=== PATIENT | male | born 1970 | race Caucasian/White ===

== ENCOUNTER 2016-12-04 12:24 | Emergency (ER) | payer BC, OTHER ==
[2016-12-04] MEDS ORDERED: Sodium Chloride 0.9% 1,000 ML IV ONE (12:43)
[2016-12-04] MEDS ORDERED: Sodium Chloride 0.9% 10 ML Syringe FLUSH PRN (12:44)
--- NOTE | 2016-12-04 13:17 | EDM.PDOC ---
[id number] Information: Reports: Patient - Related Data Allergies Allergy/AdvReac Type Severity Reaction Status Date / Time No Known Allergies Allergy Verified 01/06/17 16:23 Home Meds: Home Meds Diclofenac Sodium [Voltaren] 75 mg PO BID 01/06/17 [History] Melatonin/Pyridoxine HCl (B6) [Melatonin 3 mg Tablet] 3 mg PO BEDTIME PRN [History] traZODone HCl [Trazodone HCl] 100 mg PO BEDTIME PRN 01/06/17 [History] Omeprazole 20 mg PO DAILY #30 cap.cr 01/09/17 [Rx] Past Medical History - Past Health History Medical/Surgical History: Denies Medical/Surgical History Respiratory History: Reports: Other (See Below) Other Respiratory History: lung mets Gastrointestinal History: Reports: Bowel Obstruction, GERD, Other (See Below) Other Gastrointestinal History: mets to gi Musculoskeletal History: Reports: Back Pain, Chronic, Fracture Psychiatric History: Reports: Depression Oncologic (Cancer) History: Reports: Other (See Below) Other Oncologic History: testicular - Infectious Disease History Infectious Disease History: Reports: Chicken Pox - Past Surgical History GI Surgical History: Reports: Appendectomy Male Surgical History: Reports: Other (See Below) Other Male Surgeries/Procedures: R testical Social & Family History - Family History Family Medical History: Noncontributory - Tobacco Use Smoking Status *Q: Never Smoker - Caffeine Use Caffeine Use: Reports: None - Recreational Drug Use Recreational Drug Use: No ED ROS GENERAL - Review of Systems Review Of Systems: See Below (History of present illness) ED EXAM, NEURO - Physical Exam Exam: See Below (History of present illness) Course - Vital Signs Last Recorded V/S: Last Vital Signs Temp 36.7 C 12/04/16 12:33 Pulse 80 12/04/16 14:31 Resp 18 12/04/16 14:31 BP 112/59 L 12/04/16 14:31 Pulse Ox 96 12/04/16 14:31 - Orders/Labs/Meds Labs: Laboratory Tests 12/04/16 12/04/16 12/04/16 Range/Units 13:01 13:01 13:01 WBC 7.96 (4.0-11.0) K/uL RBC 5.19 (4.50-5.90) M/uL Hgb 15.8 (13.0-17.0) g/dL Hct 45.0 (38.0-50.0) % MCV 86.7 (80.0-98.0) fL MCH 30.4 (27.0-32.0) pg MCHC 35.1 (31.0-37.0) g/dL RDW Std Deviation 39.7 (28.0-62.0) fl RDW Coeff of Dave 13 (11.0-15.0) % Plt Count 246 (150-400) K/uL MPV 9.50 (7.40-12.00) fL Neut % (Auto) 72.7 (48.0-80.0) % Lymph % (Auto) 19.0 (16.0-40.0) % [place] % (Auto) 7.2 (0.0-15.0) % Eos % (Auto) 0.8 (0.0-7.0) % Baso % (Auto) 0.3 (0.0-1.5) % Neut # (Auto) 5.8 H (1.4-5.7) K/uL Lymph # (Auto) 1.5 (0.6-2.4) K/uL [place] # (Auto) 0.6 (0.0-0.8) K/uL Eos # (Auto) 0.1 (0.0-0.7) K/uL Baso # (Auto) 0.0 (0.0-0.1) K/uL Nucleated RBC % 0.0 /100WBC Nucleated RBCs # 0 K/uL Sodium 137 (136-146) mmol/L Potassium 4.1 (3.5-5.1) mmol/L Chloride 107 (98-110) mmol/L Carbon Dioxide 19 L (21-31) mmol/L BUN 10 (6.0-23.0) mg/dL Creatinine 0.9 (0.6-1.5) mg/dL Est Cr Clr Drug Dosing 115.90 mL/min Estimated GFR (MDRD) > 60.0 ml/min Glucose 117 H (60-110) mg/dL Calcium 9.5 (8.8-10.8) mg/dL Total Bilirubin 1.3 (0.1-1.5) mg/dL AST 26 (5-40) IU/L ALT 33 (8-54) IU/L Alkaline Phosphatase 60 (40-150) Troponin I < 0.10 (0.0-0.29) NG/ML Total Protein 7.7 (6.0-8.0) g/dL Albumin 4.1 (3.5-5.0) g/dL Globulin 3.6 H (2.0-3.5) g/dL Albumin/Globulin Ratio 1.1 L (1.3-2.8) Free T4 0.84 (0.7-1.48) ng/dL TSH 3rd Generation 0.42 L (0.47-5.0) uIU/mL Urine Color Urine Appearance Urine pH (5.0-8.0) Ur Specific [place] (1.001-1.035) Urine Protein (NEGATIVE) mg/dL Urine Glucose (UA) (NEGATIVE) mg/dL Urine Ketones (NEGATIVE) mg/dL Urine Occult Blood (NEGATIVE) Urine Nitrite (NEGATIVE) Urine Bilirubin (NEGATIVE) Urine Urobilinogen (<2.0) EU/dL Ur Leukocyte Esterase (NEGATIVE) Urine RBC (0-2/HPF) Urine WBC (0-5/HPF) Ur Epithelial Cells (NONE-FEW) Urine Bacteria (NEGATIVE) 12/04/16 Range/Units 13:40 WBC (4.0-11.0) K/uL RBC (4.50-5.90) M/uL Hgb (13.0-17.0) g/dL Hct (38.0-50.0) % MCV (80.0-98.0) fL MCH (27.0-32.0) pg MCHC (31.0-37.0) g/dL RDW Std Deviation (28.0-62.0) fl RDW Coeff of Dave (11.0-15.0) % Plt Count (150-400) K/uL MPV (7.40-12.00) fL Neut % (Auto) (48.0-80.0) % Lymph % (Auto) (16.0-40.0) % [place] % (Auto) (0.0-15.0) % Eos % (Auto) (0.0-7.0) % Baso % (Auto) (0.0-1.5) % Neut # (Auto) (1.4-5.7) K/uL Lymph # (Auto) (0.6-2.4) K/uL [place] # (Auto) (0.0-0.8) K/uL Eos # (Auto) (0.0-0.7) K/uL Baso # (Auto) (0.0-0.1) K/uL Nucleated RBC % /100WBC Nucleated RBCs # K/uL Sodium (136-146) mmol/L Potassium (3.5-5.1) mmol/L Chloride (98-110) mmol/L Carbon Dioxide (21-31) mmol/L BUN (6.0-23.0) mg/dL Creatinine (0.6-1.5) mg/dL Est Cr Clr Drug Dosing mL/min Estimated GFR (MDRD) ml/min Glucose (60-110) mg/dL Calcium (8.8-10.8) mg/dL Total Bilirubin (0.1-1.5) mg/dL AST (5-40) IU/L ALT (8-54) IU/L Alkaline Phosphatase (40-150) Troponin I (0.0-0.29) NG/ML Total Protein (6.0-8.0) g/dL Albumin (3.5-5.0) g/dL Globulin (2.0-3.5) g/dL Albumin/Globulin Ratio (1.3-2.8) Free T4 (0.7-1.48) ng/dL TSH 3rd Generation (0.47-5.0) uIU/mL Urine Color YELLOW Urine Appearance CLEAR Urine pH 7.5 (5.0-8.0) Ur Specific [place] 1.010 (1.001-1.035) Urine Protein NEGATIVE (NEGATIVE) mg/dL Urine Glucose (UA) NEGATIVE (NEGATIVE) mg/dL Urine Ketones NEGATIVE (NEGATIVE) mg/dL Urine Occult Blood NEGATIVE (NEGATIVE) Urine Nitrite NEGATIVE (NEGATIVE) Urine Bilirubin NEGATIVE (NEGATIVE) Urine Urobilinogen 1.0 (<2.0) EU/dL Ur Leukocyte Esterase NEGATIVE (NEGATIVE) Urine RBC NONE SEEN (0-2/HPF) Urine WBC 0-1 (0-5/HPF) Ur Epithelial Cells RARE (NONE-FEW) Urine Bacteria RARE (NEGATIVE) Meds: Medications Discontinued Medications Generic Name Dose Route Start Last Admin Trade Name Freq PRN Reason Stop Dose Admin Sodium Chloride 1,000 mls @ 999 mls/hr 12/04/16 12:43 12/04/16 13:02 Normal Saline IV 12/04/16 13:43 999 mls/hr .Bolus ONE Administration Sodium Chloride 10 ml 12/04/16 12:44 Saline Flush FLUSH ASDIRECTED PRN Keep Vein Open Departure - Departure Time of Disposition: 14:20 Disposition: Home, Self-Care 01 Clinical Impression: Vertigo, Dizziness - Discharge Information Instructions: Vertigo, [id number] Referrals: PCP,None [Primary Care Provider] - Forms: ED Department Discharge Additional Instructions: Your symptoms and findings today are consistent with vertigo. We have done a very full workup to rule out any abnormalities which might contribute to dizziness. This workup was all unremarkable, including EKG ,CT of the head, chest x-ray, and labs. Take meclizine every 6 hours as needed for dizziness. Ambulate very carefully with support and assistance if necessary to optimize your personal safety. It appears of in a position where an episode of dizziness may cause you to be in danger. Do not drive if feeling dizzy. Followup with your Dr. in one to 2 days for reevaluation and to discuss and arrange further workup as needed. ED HPI NEURO - General Chief Complaint: Neurological Problem Stated Complaint: DIZZY Time Seen by Provider: 12/04/16 12:33 Source of Information: Reports: Patient History Limitations: Reports: No Limitations - History of Present Illness INITIAL COMMENTS - FREE TEXT/NARRATIVE: HISTORY AND PHYSICAL: History of present illness: [46-year-old male with a history of anxiety on benzodiazepines, depression on antidepressants prior suicidal ideation, now presents emergency department after a transient episode of blurriness and twitching in the right eye. She states he was watching TV in his right eye started twitching and then was blurry. Symptoms lasted for a short time. No pain denies weakness of any time. No speech changes. Patient was indeed able see the entire time does experience mild transient blurriness. Baseline vision since and on arrival in ED to walk without any difficulty normal strength and use of all extremities. No facial droop at any time]. Patient has a family history of CVA with regard to his father and is very nervous about his risk profile in this regard. Review of systems: As per history of present illness and below otherwise all systems reviewed and negative. Past medical history: As per history of present illness and as reviewed below otherwise noncontributory. Surgical history: As per history of present illness and as reviewed below otherwise noncontributory. Social history: No reported history of drug or alcohol abuse. Family history: As per history of present illness and as reviewed below otherwise noncontributory. Physical exam: Mildly anxious appearing patient in no acute distress alert and communicative and nonfocal neurologically with normal funduscopic exam bilateral normal and reactive pupils and no facial droop HEENT: Atraumatic, normocephalic, pupils reactive, negative for conjunctival pallor or scleral icterus, mucous membranes moist, throat clear, neck supple, nontender, trachea midline. Lungs: Clear to auscultation, breath sounds equal bilaterally, chest nontender. Heart: S1S2, regular, negative for clicks, rubs, or JVD. Abdomen: Soft, nondistended, nontender. Negative for masses or hepatosplenomegaly. Negative for costovertebral tenderness. Pelvis: Stable nontender. Genitourinary: Deferred. Rectal: Deferred. Extremities: Atraumatic, negative for cords or calf pain. Neurovascular unremarkable. Neuro: Awake, alert, oriented. Cranial nerves II through XII unremarkable. Cerebellum unremarkable. Motor and sensory unremarkable throughout. Exam nonfocal. Diagnostics: [CT of the head without] Therapeutics: [Xanax offered for anxiolysis however patient is anxious about taking a medicine which is not normally prescribed and is politely refusing this] Impression: [Visual changes Eye twitching Anxiety] Plan: [Signs and symptoms consistent with transient blurriness in the eye. No evidence of acute CVA. Normal eye and funduscopic exam bilaterally. History of anxiety and depression with clearly contributory anxiety component today. Full exam is benign and nonfocal.] Full workup pending including CT of the head. Patient refusing any meds for anxiety at this time because he is anxious about taking an extra medication. Discussed with patient if workup is unremarkable will refer his outpatient PCP and out of abundance of caution recommend baby aspirin daily and followup with primary for reevaluation and further workup and referral to ophthalmology and for any further workup of potential stroke risk factors as needed. Definitive disposition and diagnosis as appropriate pending reevaluation and review of above. - Related Data Allergies/ADRs: Allergies Allergy/AdvReac Type Severity Reaction Status Date / Time No Known Allergies Allergy Verified 01/06/17 16:23 Home Meds: Home Meds Diclofenac Sodium [Voltaren] 75 mg PO BID 01/06/17 [History] Melatonin/Pyridoxine HCl (B6) [Melatonin 3 mg Tablet] 3 mg PO BEDTIME PRN [History] traZODone HCl [Trazodone HCl] 100 mg PO BEDTIME PRN 01/06/17 [History] Omeprazole 20 mg PO DAILY #30 cap.cr 01/09/17 [Rx] Departure - Departure Time of Disposition: 14:20 Disposition: Home, Self-Care 01 Condition: Good Clinical Impression: Vertigo, Dizziness Instructions: Vertigo, [id number] Referrals: PCP,None [Primary Care Provider] - Forms: ED Department Discharge Additional Instructions: Your symptoms and findings today are consistent with vertigo. We have done a very full workup to rule out any abnormalities which might contribute to dizziness. This workup was all unremarkable, including EKG ,CT of the head, chest x-ray, and labs. Take meclizine every 6 hours as needed for dizziness. Ambulate very carefully with support and assistance if necessary to optimize your personal safety. It appears of in a position where an episode of dizziness may cause you to be in danger. Do not drive if feeling dizzy. Followup with your Dr. in one to 2 days for reevaluation and to discuss and arrange further workup as needed.
[2016-12-04 13:39] LABS: CHLORIDE,CL 107 mmol/L (98-110); SODIUM,NA 137 mmol/L (136-146)
--- NOTE | 2016-12-04 13:55 | CT ---
EXAMINATION: Non contrast CT head. Coronal and sagittal reformats. HISTORY: Cardio eval FINDINGS: No evidence of intra or extra axial hemorrhage, mass, midline shift, hydrocephalus or edema. No hypoattenuation changes in the major vascular territories to suggest acute infarct. No abnormal intracranial calcifications are detected. No evidence of substantial vascular calcifica tions. Paranasal sinuses and mastoid air cells are well aerated without substantial findings. The orbits a nd globes are symmetric. Pituitary fossa appears unremarkable. Calvarium is intact. No evidence of skull fracture. IMPRESSION: No acute intracranial findings.
--- NOTE | 2016-12-04 13:55 | CR ---
EXAMINATION: Portable chest radiograph. HISTORY: Chest eval. FINDINGS: The trachea is midline. The cardiomediastinal silhouette is within normal limits. No pulmonary infil trates, effusions or pneumothorax. Osseous structures appear unremarkable. IMPRESSION: No acute cardiopulmonary process.
[2016-12-04 14:38] VITALS: BP 112/59
== END 2016-12-04 14:31 | disposition home or self-care (01) ==
LOC: MW.ED 12:24
DX: R42 Dizziness and giddiness (principal); F41.9 Anxiety disorder, unspecified; F32.9 Major depressive disorder, single episode, unspecified; Z85.47 Personal history of malignant neoplasm of testis; Z90.49 Acquired absence of other specified parts of digestive tract; Z90.79 Acquired absence of other genital organ(s)
CPT/HCPCS: 36415; 70450; 71010; 80053; 81001; 84439; 84443; 84484; 85025; 93005; 96360; 99285; J7040; 99283

== ENCOUNTER 2017-01-09 08:18 | Day surgery (SDC) | payer OTHER ==
[~2017-01-09 08:18] MED LIST: Lactated Ringers 1,000 ML IV SCH; Sodium Chloride 0.9% 10 ML Syringe FLUSH PRN; Sodium Chloride 0.9% 2.5 ML Syringe FLUSH PRN
--- NOTE | 2017-01-09 08:43 | PCM.PREANE ---
Preanesthetic Assessment - Anesthesia/Transfusion/Family Hx Anesthesia History: Prior Anesthesia Without Reaction Family History of Anesthesia Reaction: No Transfusion History: No Prior Transfusion(s) Intubation History: Unknown - Review of Systems General: No Symptoms Pulmonary: No Symptoms Cardiovascular: No Symptoms Gastrointestinal: Hematochezia Neurological: No Symptoms Other: Reports: None - Physical Assessment O2 Sat by Pulse Oximetry: 97 Respiratory Rate: 16 Vital Signs: Last Vital Signs Temp 36.7 C 01/09/17 08:37 Pulse 80 01/09/17 08:37 Resp 16 01/09/17 08:37 BP 128/78 01/09/17 08:37 Pulse Ox 97 01/09/17 08:37 Height: 1.83 m Weight: 121.109 kg ASA Class: 2 Mental Status: Alert & Oriented x3 Airway Class: Mallampati = 2 Dentition: Reports: [place](s) (x3 upper front), Missing Tooth/Teeth (x1 upper front) Thyro-Mental Finger Breadths: 3 Mouth Opening Finger Breadths: 3 ROM/Head Extension: Full Lungs: Clear to auscultation, Normal respiratory effort Cardiovascular: Regular Rate, Regular Rhythm - Allergies Allergies/Adverse Reactions: Allergies Allergy/AdvReac Type Severity Reaction Status Date / Time No Known Allergies Allergy Verified 01/06/17 16:23 - Blood Blood Available: No - Anesthesia Plan Pre-Op Medication Ordered: None - Acknowledgements Anesthesia Type Planned: MAC Pt an Appropriate Candidate for the Planned Anesthesia: Yes Alternatives and Risks of Anesthesia Discussed w Pt/Guardian: Yes Pt/Guardian Understands and Agrees with Anesthesia Plan: Yes PreAnesthesia Questionnaire - Past Health History Medical/Surgical History: Denies Medical/Surgical History Other HEENT History: uses reading glasses Cardiovascular History: Reports: None Respiratory History: Reports: None Other Respiratory History: lung mets Gastrointestinal History: Reports: GERD, Other (See Below) Other Gastrointestinal History: current rectal bleeding Genitourinary History: Reports: Other (See Below) Other Genitourinary History: right testicular cancer with orchiectomy, pelvic lymphadenectomy and chemo 10 years ago Musculoskeletal History: Reports: None Neurological History: Reports: Headaches, Chronic, Vertigo Other Neuro History: had episode of vertigo 1 month ago Psychiatric History: Reports: PTSD Endocrine/Metabolic History: Reports: Obesity/BMI 30+ Hematologic History: Reports: None Immunologic History: Reports: None Oncologic (Cancer) History: Reports: Other (See Below) Other Oncologic History: testicular Dermatologic History: Reports: None - Infectious Disease History Infectious Disease History: Reports: Chicken Pox - Past Surgical History Head Surgeries/Procedures: Reports: None HEENT Surgical History: Reports: None Cardiovascular Surgical History: Reports: None Respiratory Surgical History: Reports: None GI Surgical History: Reports: Appendectomy, Hernia, Inguinal, Other (See Below) Other GI Surgeries/Procedures: lasparoscopy for pelvic lymphadenectomy Other Female Surgeries/Procedures: right Orchiectomy Male Surgical History: Reports: Other (See Below) (right orchiectomy) Endocrine Surgical History: Reports: None Neurological Surgical History: Reports: None Musculoskeletal Surgical History: Reports: None Oncologic Surgical History: Reports: Other (See Below) Other Oncologic Surgeries/Procedures: right Orchiectomy Dermatological Surgical History: Reports: None - SUBSTANCE USE Smoking Status *Q: Never Smoker Days Per Week of Alcohol Use: 2 Recreational Drug Use History: No - HOME MEDS Home Medications: Home Meds Diclofenac Sodium [Voltaren] 75 mg PO BID 01/06/17 [History] Melatonin/Pyridoxine HCl (B6) [Melatonin 3 mg Tablet] 3 mg PO BEDTIME PRN [History] traZODone HCl [Trazodone HCl] 100 mg PO BEDTIME PRN 01/06/17 [History] - CURRENT (IN HOUSE) MEDS Current Meds: Current Medications Lactated Ringer's (Ringers, Lactated) 1,000 mls @ 125 mls/hr IV ASDIRECTED GRUPO Last Admin: 01/09/17 08:39 Dose: 125 mls/hr Sodium Chloride (Saline Flush) 10 ml FLUSH ASDIRECTED PRN PRN Reason: Keep Vein Open Sodium Chloride (Saline Flush) 2.5 ml FLUSH ASDIRECTED PRN PRN Reason: Keep Vein Open
[2017-01-09] MEDS ORDERED: Propofol 200 MG/20 ML SDV ONE ×2 (08:52→09:15)
[2017-01-09] MEDS ORDERED: fentaNYL 100 MCG/2 ML SDV ONE (08:53)
--- NOTE | 2017-01-09 09:50 | PCM.OPNOTE ---
- General Post-Op/Procedure Note Date of Surgery/Procedure: 01/09/17 Operative Procedure(s): Diagnostic EGD and colonoscopy, grade 2 hemorrhoid Findings: Mass in second portion of duodeum, could be spincter of oddi but no bile was noted to be coming from the area, descending colon polyp Pre Op Diagnosis: Heartburn, BRBPR Post-Op Diagnosis: Grade 2 hemorrhoid, descending colon polyp, mass in second portion of duodenum vs sphincter of oddi with abnormal tissue Anesthesia Technique: MAC Primary Surgeon: Cherelle Holliday Condition: Good
--- NOTE | 2017-01-09 09:54 | PCM.POSTAN ---
POST ANESTHESIA ASSESSMENT - MENTAL STATUS Mental Status: alert, oriented - RESPIRATORY Respiratory Status: respiratory rate WNL, airway patent, O2 saturation stable - CARDIOVASCULAR CV Status: pulse rate WNL, blood pressure stable - GASTROINTESTINAL GI Status: no symptoms - POST OP HYDRATION Hydration Status: adequate & stable - OBSERVATIONS Free Text/Narrative:: no anesthesia problems
[2017-01-09 13:16] VITALS: BP 108/50
--- NOTE | 2017-01-09 21:15 | OR ---
SURGEON: CAMILA BARROW MD DATE OF PROCEDURE: 01/09/2017 PREOPERATIVE DIAGNOSIS: Heartburn, change in bowel habits. POSTOPERATIVE DIAGNOSIS: Questionable duodenal mass, descending colon polyp. PROCEDURE PERFORMED: Diagnostic EGD and colonoscopy. INSTRUMENT USED: Olympus endoscope and colonoscope. ANESTHESIA: MAC. EXTENT OF EXAM: To the cecum, to the second portion of duodenum. PREPARATION: Good. LIMITATIONS: None. INDICATIONS: The patient is a 46-year-old male with a past medical history of testicular cancer. He recently started noticing bright red bleeding per rectum and has had a longstanding history of heartburn that is poorly controlled with over-the- counter medications. Given these findings, the decision was made to perform a diagnostic EGD and colonoscopy. The patient and I discussed the procedures, expected perioperative course, and risks including bleeding, infection, or damage to surrounding structures, including perforation. The patient verbalized understanding and wished to proceed. PROCEDURE IN DETAIL: The patient was brought to the endoscopy suite and placed in a beach chair position. A time-out was completed verifying the patient's name, age, date of , allergies, and procedure to be performed. A bite block was placed in the patient's mouth and monitored anesthesia care was induced. Continuous oxygen was provided via nasal cannula throughout the procedure. Once adequate sedation was achieved, an Olympus endoscope was passed into the patient's mouth and advanced under direct visualization to the second portion of duodenum. A photograph was taken. In the second portion of the duodenum, there appeared to be a mass along the medial aspect. This appeared enlarged, not grossly abnormal. Multiple photographs were taken of this. I watched the area as it was in the same location as the sphincter of Oddi would be but I never saw any bile leak from this area. The scope was then moved into the duodenal bulb which appeared normal and a photograph was taken. A photograph was taken of the pylorus above the esophageal hiatus which appeared normal. Biopsies were taken of the gastric body, fundus, and antrum and sent for H. pylori and pathologic testing. Photograph was taken of the GE junction which appeared normal. The remainder of the esophageal mucosa appeared normal. The scope was removed from the patient and we moved to the colonoscopy portion of the exam. The patient was placed in a left lateral decubitus position. A digital rectal exam was performed which was normal. A well-lubricated colonoscope was advanced under direct visualization to the level of the cecum. The cecum was identified by both visual and anatomic landmarks. A photograph was taken of the cecal cap but I was unable to retroflex the scope safely within the cecum. The scope was straightened out and fully withdrawn while examining the color, texture, anatomy, and integrity of mucosa from the cecum to the anal canal. A small descending colon polyp was removed via a cold biopsy forceps and sent to pathology. The scope was brought into the rectum and retroflexed to allow visualization of the anal canal opening. This appeared normal and a photograph was taken. The scope was straightened out and removed from the patient. The cecum to anus time was 17 minutes. The patient was transferred to the recovery room in stable condition. ENDOSCOPIC DIAGNOSIS: Duodenal mass. Possible it is just sphincter of Oddi. questionable abnormal growth. Descending colon polyp. RECOMMENDATIONS: Follow up in clinic in 2 weeks. MARKEL HIGGINBOTHAM /[id number]
== END 2017-01-09 10:30 | disposition home or self-care (01) ==
LOC: MW.SDS 08:18
PROVIDERS: ATTEND Surgery
DX: D12.4 Benign neoplasm of descending colon (principal); K31.89 Other diseases of stomach and duodenum; Z79.899 Other long term (current) drug therapy; Z90.49 Acquired absence of other specified parts of digestive tract; Z98.890 Other specified postprocedural states
CPT/HCPCS: 43239; 45380; 88305; 88312; J3010; J7120; 00740; J2704

== ENCOUNTER 2018-04-16 12:11 | Day surgery (SDC) | payer OTHER ==
[~2018-04-16 12:11] MED LIST changes: +Betamethasone Acetate/Betamethasone Sod Phosphate 30 MG/5 ML MDV ONE; +Iopamidol 408 MG/ML 50 ML SDV ONE; -Lactated Ringers 1,000 ML IV SCH; +Lidocaine 2% 5 ML SDV ONE; +Ropivacaine 0.5% 5 MG/ML 30 ML SDV ONE; -Sodium Chloride 0.9% 10 ML Syringe FLUSH PRN; -Sodium Chloride 0.9% 2.5 ML Syringe FLUSH PRN
--- NOTE | 2018-04-17 00:13 | OR ---
SURGEON: Brianna Arechiga D.O. DATE OF PROCEDURE: 04/16/2018 OR STAFF PRESENT: 1. Sheri Hdez RN. 2. Elvira Cheney RN. 3. RT Praful. WOUND CLASSIFICATION: I. PREOPERATIVE DIAGNOSES: 1. Cervical degenerative disk disease, C3-C4, C4-C5, C5-C6. 2. Cervical spondylosis. 3. Cervical facet syndrome. PREOPERATIVE DIAGNOSES: 1. Cervical degenerative disk disease, C3-C4, C4-C5, C5-C6. 2. Cervical spondylosis. 3. Cervical facet syndrome. PROCEDURES PERFORMED: 1. Left C3, medial branch block. 2. Left C4, medial branch block. 3. Left C5, medial branch block. 4. Fluoroscopic guidance for needle placement. 5. Local with oral Valium for sedation. SCREENING QUESTIONS: The patient answered "No" to all of the following questions: 1. Are you allergic to iodine, Betadine or latex? 2. Do you have a bleeding disorder? 3. Are you on anti-inflammatories or blood thinners? 4. Do you have any current local or systemic infections? 5. Do you have any joint replacements, heart valve replacements or a pacemaker? DESCRIPTION OF THE PROCEDURE: The patient had the procedure thoroughly explained including risks, benefits and alternatives. Consent was signed in my clinic indicating understanding and willingness to proceed. The patient presented to [facility] [place] and was escorted to the dressing room to disrobe and change into a hospital gown. Preoperative vital signs were taken and stable. The patient reported that Valium 10 milligrams was taken prior to the procedure. The patient was brought to the procedure room and placed in the prone position on the [facility] frame for the cervical epidural steroid injection. A pillow was placed under the legs for patient comfort. The back was prepped with ChloraPrep and sterilely draped. All personnel in the operating room were dressed in appropriate attire including surgical scrubs, head and shoe covers. This was to ensure sterility while in the treatment room. During the time fluoroscopy was in use. all personnel in the operating room wore lead tavares with thyroid collars. Sterile technique was used during the procedure. Skeletal landmarks were identified under fluoroscopic guidance for the C7-T1 interspace. The skin overlying the area was anesthetized with 2 cubic centimeters of 2% Lidocaine with a sterile 27-gauge 1.5 inch needle. Likewise the deep tissues were infiltrated. There was no evidence of infection at the site of needle insertion. Then a 20-gauge 3.5 inch Tuohy epidural needle was advanced under fluoroscopic guidance with loss of resistance technique. The needle position was visualized in both AP and lateral views for the C7-T1 cervical epidural steroid injection. Needle position was verified, 0.2 cubic centimeters increments of IsoVue-200 contrast dye injected under live fluoroscopy through microbore tubing and seen to outline the cervical epidural space in AP and lateral views. There was negative aspiration of heme, CSF and no paresthesias were noted. Then 6 milligrams of Celestone was slowly injected. The needle was cleared prior to removal from the skin. No adverse reactions were noted. The patient tolerated the procedure well and was brought to the recovery room awake and in good condition. After a brief stay in the recovery room monitored by the nurse, the patient was discharged to home. The patient was given both oral and written discharge and followup instructions and will follow up in the clinic in two to three weeks. The patient voiced understanding including understanding of those signs and symptoms that would require emergency care and also knows how to contact the office if there are any problems or questions in the meantime. PREOPERATIVE PAIN: /10. POSTOPERATIVE PAIN: 10/11. PLAN: Follow up in the Pain Clinic in 3 weeks. TIERNEY HIGGINBOTHAM /[id number]
== END 2018-04-16 15:50 ==
LOC: MW.SDS 12:11
PROVIDERS: ATTEND Anesthesiology
DX: M50.322 Other cervical disc degeneration at C5-C6 level (principal); M47.812 Spondylosis without myelopathy or radiculopathy, cervical region; M53.82 Other specified dorsopathies, cervical region; M54.81 Occipital neuralgia; M25.512 Pain in left shoulder; M79.1 Myalgia; F43.10 Post-traumatic stress disorder, unspecified; Z79.899 Other long term (current) drug therapy
CPT/HCPCS: 64490; 64491; 64492; J0702; Q9966; J2795

== ENCOUNTER 2019-03-22 10:10 | Emergency (ER) | payer OTHER ==
[2019-03-22] MEDS ORDERED: Sodium Chloride 0.9% 2.5 ML Syringe FLUSH PRN (10:15)
[2019-03-22] MEDS ORDERED: Sodium Chloride 0.9% 10 ML Syringe FLUSH PRN (10:15)
[2019-03-22 10:24] VITALS: BP 167/102
--- NOTE | 2019-03-22 10:50 | EDM.PDOC ---
ED HPI GENERAL MEDICAL PROBLEM - General Chief Complaint: Trauma Stated Complaint: HEAD INJURY Time Seen by Provider: 03/22/19 10:15 Source of Information: Reports: Patient History Limitations: Reports: No Limitations - History of Present Illness INITIAL COMMENTS - FREE TEXT/NARRATIVE: HISTORY AND PHYSICAL: History of present illness: Patient is a 48-year-old male presents to the ED today via EMS after an object at work fell on patient's head. Patient states he was working on the floor when a metal object from up high blood on his head. Patient states he does not remember falling to the ground but woke up on the ground. Patient states his complaints today are the area where the object hit the back of his scalp, neck pain, and mid back pain. Patient states he has a history of prior testicular cancer but has been in remission for 20 years. Patient denies any substance use or any other health history. Patient not up to date on tetanus. Patient denies fever, chills, chest pain, shortness of breath, or cough. Denies headache, change in vision, syncope, or near syncope. Denies nausea, vomiting, abdominal pain, diarrhea, constipation, or dysuria. Has not noted any blood in urine or stool. Patient has been eating and drinking appropriately. Review of systems: As per history of present illness and below otherwise all systems reviewed and negative. Past medical history: As per history of present illness and as reviewed below otherwise noncontributory. Surgical history: As per history of present illness and as reviewed below otherwise noncontributory. Social history: See social history for further information Family history: As per history of present illness and as reviewed below otherwise noncontributory. Physical exam: Cervical collar in place upon arrival; placed by EMS. General: Patient is alert, oriented, and in no acute distress. Patient laying comfortably on exam table with cervical collar intact. HEENT: Normocephalic, pupils equal and reactive bilaterally, negative for conjunctival pallor or scleral icterus, mucous membranes moist, TMs normal bilaterally, throat clear, neck supple, nontender, trachea midline. No drooling or trismus noted. No meningeal signs. No hot potato voice noted. There is a 6cm superficial irregular laceration of the scalp with mild bleeding. Lungs: Clear to auscultation, breath sounds equal bilaterally, chest nontender. Heart: S1S2, regular rate and rhythm without overt murmur Abdomen: Obese, soft, nondistended, nontender. Negative for masses or hepatosplenomegaly. Negative for costovertebral tenderness. Pelvis: Stable nontender. Genitourinary: Deferred. Rectal: Deferred. Skin: See HEENT. OTherwise Intact, warm, dry. No lesions or rashes noted. Extremities/musculoskeletal: Atraumatic, negative for cords or calf pain. Neurovascular unremarkable. Full ROM of upper and lower extremities without pain or deficit. Dp/PT intact bilaterally. Radial pulses intact bilaterally. Patient does have pain with palpation of the spinous process of the thoracic spine. No obvious deformities of the complete spine. No step-offs or crepitus on palpation of complete spine. Neuro: Awake, alert, oriented. Cranial nerves II through XII unremarkable. Cerebellum unremarkable. Motor and sensory unremarkable throughout. Exam nonfocal. Notes: Trauma alert was called upon arrival to the ED. Dr. Johansen was directly involved in patient care. Thoroughly discussed the importance for follow-up with an orthopedic provider / strategic partnership specialist as well as his primary care provider. Voices understanding and is agreeable to plan of care. Denies any further questions or concerns at this time. Diagnostics: Head CT, cervical spine CT, thoracic CT, chest CT, pelvic x-ray, CBC, CMP, UA, PT/INR Therapeutics: Morphine, Dilaudid, Tdap, [place], Zofran Prescription: [place] #15 Impression: Acute T5 and T8 compression fracture Scalp laceration Plan: 1. Keep the area clean and dry. Continue to monitor for signs of infection as discussed. Bhumika to be removed in 7-10 days. 2. Tylenol and/or ibuprofen as directed and as needed for pain management and discomfort. Take medication as prescribed. 3. Please follow-up with your primary care provider as well as orthopedics as discussed. Return to the ED as needed and as discussed. Definitive disposition and diagnosis as appropriate pending reevaluation and review of above. Middle Back Pain Score (Numeric/FACES): 10 - Related Data Allergies Allergy/AdvReac Type Severity Reaction Status Date / Time No Known Allergies Allergy Verified 03/22/19 10:17 Home Meds: Home Meds Diclofenac Sodium [Voltaren] mg PO BID 01/06/17 [History] Melatonin/Pyridoxine HCl (B6) [Melatonin 3 mg Tablet] 3 mg PO BEDTIME PRN [History] traZODone HCl [Trazodone HCl] 100 mg PO BEDTIME PRN 01/06/17 [History] Omeprazole 20 mg PO DAILY #30 cap.cr 01/09/17 [Rx] Meloxicam [Qmiiz Odt] 03/22/19 [History] Past Medical History - Past Health History Medical/Surgical History: Denies Medical/Surgical History Other HEENT History: uses reading glasses Cardiovascular History: Reports: None Respiratory History: Reports: None Other Respiratory History: lung mets Gastrointestinal History: Reports: GERD, Other (See Below) Other Gastrointestinal History: current rectal bleeding Genitourinary History: Reports: Other (See Below) Other Genitourinary History: right testicular cancer with orchiectomy, pelvic lymphadenectomy and chemo 10 years ago Musculoskeletal History: Reports: None Neurological History: Reports: Headaches, Chronic, Vertigo Other Neuro History: had episode of vertigo 1 month ago Psychiatric History: Reports: PTSD Endocrine/Metabolic History: Reports: Obesity/BMI 30+ Hematologic History: Reports: None Immunologic History: Reports: None Oncologic (Cancer) History: Reports: Other (See Below) Other Oncologic History: testicular Dermatologic History: Reports: None - Infectious Disease History Infectious Disease History: Reports: Chicken Pox - Past Surgical History Head Surgeries/Procedures: Reports: None HEENT Surgical History: Reports: None Cardiovascular Surgical History: Reports: None GI Surgical History: Reports: Appendectomy, Hernia, Inguinal, Other (See Below) Male Surgical History: Reports: Other (See Below) Other Male Surgeries/Procedures: R testical Endocrine Surgical History: Reports: None Neurological Surgical History: Reports: None Dermatological Surgical History: Reports: None Social & Family History - Family History Family Medical History: Noncontributory - Tobacco Use Smoking Status *Q: Unknown Ever Smoked - Caffeine Use Caffeine Use: Reports: None - Recreational Drug Use Recreational Drug Use: No Review of Systems - Review of Systems Review Of Systems: ROS reveals no pertinent complaints other than HPI. ED EXAM, GENERAL - Physical Exam Exam: See Below (see dictation) ED TRAUMA PROCEDURES - Laceration/Wound Repair Anterior Head Lac/Wound Length In cm: 6 Appearance: Superficial, Irregular, Clean Distal NVT: Neuro & Vascular Intact, No Tendon Injury Skin Prep: Chlorhexidine (Hibiciens), Providone-Iodine (Betadine) Saline Irrigation (cc's): 50 Exploration/Debridement/Repair: Wound Explored, In a Bloodless Field, Explored to Base, No Foreign Material Found Closed With: [place] # of Sutures: 14 Drain Placement: No Sterile Dressing Applied: Nurse Tetanus Status Addressed: Yes Complications: No Course - Vital Signs Last Recorded V/S: Last Vital Signs Temp 36.6 C 03/22/19 10:10 Pulse 88 03/22/19 10:10 Resp 18 03/22/19 10:10 BP 167/102 H 03/22/19 10:10 Pulse Ox 95 03/22/19 10:10 - Orders/Labs/Meds Orders: Active Orders 24 hr Category Date Time Status Admission Status [Patient Status] [ADT] Stat ADT 03/22/19 10:55 Active Vaccines to be Administered [RC] PER UNIT ROUTINE Care 03/22/19 12:19 Active Sodium Chloride 0.9% [Saline Flush] Med 03/22/19 10:15 Active 10 ml FLUSH ASDIRECTED PRN Sodium Chloride 0.9% [Saline Flush] Med 03/22/19 10:15 Active 2.5 ml FLUSH ASDIRECTED PRN Saline Lock Insert [OM.PC] Stat Oth 03/22/19 10:15 Ordered Medication Orders Sodium Chloride (Saline Flush) 10 ml FLUSH ASDIRECTED PRN PRN Reason: Keep Vein Open Sodium Chloride (Saline Flush) 2.5 ml FLUSH ASDIRECTED PRN PRN Reason: Keep Vein Open Labs: Laboratory Tests 03/22/19 03/22/19 03/22/19 Range/Units 11:16 11:16 11:16 WBC 11.15 H (4.0-11.0) K/uL RBC 4.99 (4.50-5.90) M/uL Hgb 15.0 (13.0-17.0) g/dL Hct 43.4 (38.0-50.0) % MCV 87.0 (80.0-98.0) fL MCH 30.1 (27.0-32.0) pg MCHC 34.6 (31.0-37.0) g/dL RDW Std Deviation 40.4 (28.0-62.0) fl RDW Coeff of Dave 13 (11.0-15.0) % Plt Count 232 (150-400) K/uL MPV 9.30 (7.40-12.00) fL Neut % (Auto) 78.7 (48.0-80.0) % Lymph % (Auto) 12.6 L (16.0-40.0) % [place] % (Auto) 7.4 (0.0-15.0) % Eos % (Auto) 1.1 (0.0-7.0) % Baso % (Auto) 0.2 (0.0-1.5) % Neut # (Auto) 8.8 H (1.4-5.7) K/uL Lymph # (Auto) 1.4 (0.6-2.4) K/uL [place] # (Auto) 0.8 (0.0-0.8) K/uL Eos # (Auto) 0.1 (0.0-0.7) K/uL Baso # (Auto) 0.0 (0.0-0.1) K/uL Nucleated RBC % 0.0 /100WBC Nucleated RBCs # 0 K/uL INR 0.96 Sodium 138 (136-148) mmol/L Potassium 4.3 (3.5-5.1) mmol/L Chloride 103 (98-107) mmol/L Carbon Dioxide 26.1 (21.0-32.0) mmol/L BUN 15 (7.0-18.0) mg/dL Creatinine 1.0 (0.8-1.3) mg/dL Est Cr Clr Drug Dosing 99.16 mL/min Estimated GFR (MDRD) > 60.0 ml/min Glucose 111 H (74-106) mg/dL Calcium 8.9 (8.5-10.1) mg/dL Total Bilirubin 0.6 (0.2-1.0) mg/dL AST 23 (15-37) IU/L ALT 39 (14-63) IU/L Alkaline Phosphatase 61 (46-116) U/L Total Protein 6.9 (6.4-8.2) g/dL Albumin 3.5 (3.4-5.0) g/dL Globulin 3.4 (2.6-4.0) g/dL Albumin/Globulin Ratio 1.0 (0.9-1.6) Urine Color Urine Appearance Urine pH (5.0-8.0) Ur Specific [place] (1.001-1.035) Urine Protein (NEGATIVE) mg/dL Urine Glucose (UA) (NEGATIVE) mg/dL Urine Ketones (NEGATIVE) mg/dL Urine Occult Blood (NEGATIVE) Urine Nitrite (NEGATIVE) Urine Bilirubin (NEGATIVE) Urine Urobilinogen (<2.0) EU/dL Ur Leukocyte Esterase (NEGATIVE) Urine Opiates Screen (NEGATIVE) Ur Oxycodone Screen (NEGATIVE) Urine Methadone Screen (NEGATIVE) Ur Barbiturates Screen (NEGATIVE) Ur Phencyclidine Scrn (NEGATIVE) Ur Amphetamine Screen (NEGATIVE) U Methamphetamines Scrn (NEGATIVE) U Benzodiazepines Scrn (NEGATIVE) U Cocaine Metab Screen (NEGATIVE) U Marijuana (THC) Screen (NEGATIVE) 03/22/19 03/22/19 Range/Units 13:07 13:07 WBC (4.0-11.0) K/uL RBC (4.50-5.90) M/uL Hgb (13.0-17.0) g/dL Hct (38.0-50.0) % MCV (80.0-98.0) fL MCH (27.0-32.0) pg MCHC (31.0-37.0) g/dL RDW Std Deviation (28.0-62.0) fl RDW Coeff of Dave (11.0-15.0) % Plt Count (150-400) K/uL MPV (7.40-12.00) fL Neut % (Auto) (48.0-80.0) % Lymph % (Auto) (16.0-40.0) % [place] % (Auto) (0.0-15.0) % Eos % (Auto) (0.0-7.0) % Baso % (Auto) (0.0-1.5) % Neut # (Auto) (1.4-5.7) K/uL Lymph # (Auto) (0.6-2.4) K/uL [place] # (Auto) (0.0-0.8) K/uL Eos # (Auto) (0.0-0.7) K/uL Baso # (Auto) (0.0-0.1) K/uL Nucleated RBC % /100WBC Nucleated RBCs # K/uL INR Sodium (136-148) mmol/L Potassium (3.5-5.1) mmol/L Chloride (98-107) mmol/L Carbon Dioxide (21.0-32.0) mmol/L BUN (7.0-18.0) mg/dL Creatinine (0.8-1.3) mg/dL Est Cr Clr Drug Dosing mL/min Estimated GFR (MDRD) ml/min Glucose (74-106) mg/dL Calcium (8.5-10.1) mg/dL Total Bilirubin (0.2-1.0) mg/dL AST (15-37) IU/L ALT (14-63) IU/L Alkaline Phosphatase (46-116) U/L Total Protein (6.4-8.2) g/dL Albumin (3.4-5.0) g/dL Globulin (2.6-4.0) g/dL Albumin/Globulin Ratio (0.9-1.6) Urine Color YELLOW Urine Appearance CLEAR Urine pH 7.0 (5.0-8.0) Ur Specific [place] 1.010 (1.001-1.035) Urine Protein NEGATIVE (NEGATIVE) mg/dL Urine Glucose (UA) NEGATIVE (NEGATIVE) mg/dL Urine Ketones NEGATIVE (NEGATIVE) mg/dL Urine Occult Blood NEGATIVE (NEGATIVE) Urine Nitrite NEGATIVE (NEGATIVE) Urine Bilirubin NEGATIVE (NEGATIVE) Urine Urobilinogen 0.2 (<2.0) EU/dL Ur Leukocyte Esterase NEGATIVE (NEGATIVE) Urine Opiates Screen POSITIVE (NEGATIVE) Ur Oxycodone Screen NEGATIVE (NEGATIVE) Urine Methadone Screen NEGATIVE (NEGATIVE) Ur Barbiturates Screen NEGATIVE (NEGATIVE) Ur Phencyclidine Scrn NEGATIVE (NEGATIVE) Ur Amphetamine Screen NEGATIVE (NEGATIVE) U Methamphetamines Scrn NEGATIVE (NEGATIVE) U Benzodiazepines Scrn NEGATIVE (NEGATIVE) U Cocaine Metab Screen NEGATIVE (NEGATIVE) U Marijuana (THC) Screen NEGATIVE (NEGATIVE) Meds: Medications Generic Name Dose Route Start Last Admin Trade Name Freq PRN Reason Stop Dose Admin Sodium Chloride 10 ml 03/22/19 10:15 Saline Flush FLUSH ASDIRECTED PRN Keep Vein Open Sodium Chloride 2.5 ml 03/22/19 10:15 Saline Flush FLUSH ASDIRECTED PRN Keep Vein Open Discontinued Medications Generic Name Dose Route Start Last Admin Trade Name Freq PRN Reason Stop Dose Admin Diphtheria/Tetanus/Acell Pertussis 0.5 ml 03/22/19 12:19 03/22/19 12:36 Adacel IM 03/22/19 12:20 0.5 ml .ONCE ONE Administration Hydromorphone HCl 0.5 mg 03/22/19 11:57 03/22/19 12:09 Dilaudid IVPUSH 03/22/19 11:58 0.5 mg ONETIME ONE Administration Morphine Sulfate 2 mg 03/22/19 10:52 03/22/19 10:58 Morphine IVPUSH 03/22/19 10:53 2 mg ONETIME ONE Administration Ondansetron HCl 4 mg 03/22/19 12:46 03/22/19 12:50 Zofran IVPUSH 03/22/19 12:47 4 mg ONETIME ONE Administration Departure - Departure Time of Disposition: 13:45 Disposition: Home, Self-Care 01 Clinical Impression: Compression fracture of T5 vertebra Qualifiers: Encounter type: initial encounter Qualified Code(s): S22.050A - Wedge compression fracture of T5-T6 vertebra, initial encounter for closed fracture Compression fracture of T8 vertebra Qualifiers: Encounter type: initial encounter Qualified Code(s): S22.060A - Wedge compression fracture of T7-T8 vertebra, initial encounter for closed fracture Scalp laceration Qualifiers: Encounter type: initial encounter Qualified Code(s): S01.01XA - Laceration without foreign body of scalp, initial encounter - Discharge Information Instructions: Head Injury, Adult, [id number], Laceration Care, Adult, Easy-to -Read, Stitches, Bhumika, or Adhesive Wound Closure, [id number], Vertebral Fracture, [id number] Referrals: PCP,Unknown [Primary Care Provider] - Forms: ED Department Discharge Additional Instructions: The following information is given to patients seen in the emergency department who are being discharged to home. This information is to outline your options for follow-up care. We provide all patients seen in our emergency department with a follow-up referral. The need for follow-up, as well as the timing and circumstances, are variable depending upon the specifics of your emergency department visit. If you don't have a primary care physician on staff, we will provide you with a referral. We always advise you to contact your personal physician following an emergency department visit to inform them of the circumstance of the visit and for follow-up with them and/or the need for any referrals to a consulting specialist. The emergency department will also refer you to a specialist when appropriate. This referral assures that you have the opportunity for follow-up care with a specialist. All of these measure are taken in an effort to provide you with optimal care, which includes your follow-up. Under all circumstances we always encourage you to contact your private physician who remains a resource for coordinating your care. When calling for follow-up care, please make the office aware that this follow-up is from your recent emergency room visit. If for any reason you are refused follow-up, please contact the [facility] Emergency Department at and asked to speak to the emergency department charge nurse. [facility] [address] [place] [id number] [address] [facility] Specialty Care - Orthopedic Clinic Professional Building [address] [facility], [address] [place] [address] Dr Amador, Orthopedist [facility] [address] [place] [address] Dr Gross - Dr Kimbrough - Dr Wells [facility] [address] [place] [address] [facility] [address] [place] [address] 1. Keep the area clean and dry. Continue to monitor for signs of infection as discussed. Bhumika to be removed in 7-10 days. 2. Tylenol and/or ibuprofen as directed and as needed for pain management and discomfort. Take medication as prescribed. 3. Please follow-up with your primary care provider as well as orthopedics as discussed. Return to the ED as needed and as discussed. - My Orders Last 24 Hours: My Active Orders 03/22/19 10:15 Sodium Chloride 0.9% [Saline Flush] 10 ml FLUSH ASDIRECTED PRN Sodium Chloride 0.9% [Saline Flush] 2.5 ml FLUSH ASDIRECTED PRN Saline Lock Insert [OM.PC] Stat 03/22/19 10:55 Admission Status [Patient Status] [ADT] Stat 03/22/19 12:19 Vaccines to be Administered [RC] PER UNIT ROUTINE - Assessment/Plan Last 24 Hours: My Active Orders 03/22/19 10:15 Sodium Chloride 0.9% [Saline Flush] 10 ml FLUSH ASDIRECTED PRN Sodium Chloride 0.9% [Saline Flush] 2.5 ml FLUSH ASDIRECTED PRN Saline Lock Insert [OM.PC] Stat 03/22/19 10:55 Admission Status [Patient Status] [ADT] Stat 03/22/19 12:19 Vaccines to be Administered [RC] PER UNIT ROUTINE
[2019-03-22] MEDS ORDERED: Morphine 2 MG/ML Syringe IVPUSH ONE (10:52)
--- NOTE | 2019-03-22 10:59 | CT ---
INDICATION: Head injury. TECHNIQUE: Scanning of the head was performed without IV contrast material. Coronal sagittal reconstructions were obtained. COMPARISON: Today`s cervical spine CT FINDINGS: No intracranial hemorrhage is demonstrated. No mass effect or ventricular enlargement is evident. A left paramedian frontoparietal scalp laceration and hematoma is noted. No calvarial or obvious facial fracture is identified. Fluid is demonstrated in the right frontal sinus. The left frontal sinus is undeveloped. Several ethmoid air cells are opacified bilaterally. The other paranasal and mastoid sinuses are clear. IMPRESSION: 1. Negative for acute intracranial injury. 2. Left paramedian frontoparietal scalp laceration and hematoma. 3. Apparent acute right frontal sinusitis as well as evidence of ethmoid sinusitis bilaterally. Please note that all CT scans at this facility use dose modulation, iterative reconstruction, and/or weight-based dosing when appropriate to reduce radiation dose to as low as reasonably achievable. Dictated by Dylan Jeronimo MD @ Mar 22 2019 10:49AM Signed by Dr. Dylan Jeronimo @ Mar 22 2019 10:57AM
--- NOTE | 2019-03-22 11:05 | CT ---
INDICATION: Injury. TECHNIQUE: Volumetric helical scanning of the cervical spine was performed without contrast material. Sagittal and coronal reconstructions were also obtained. COMPARISON: None. FINDINGS: No fracture, traumatic subluxation or prevertebral soft tissue swelling is demonstrated. Moderate disc degeneration at C5-6 and C6-7 is noted. The other disc spaces are unremarkable. Mild facet degenerative changes are noted. No curvature abnormality or other abnormality is evident. IMPRESSION: 1. Negative for acute traumatic abnormality. 2. Multilevel spondylosis, as above. Please note that all CT scans at this facility use dose modulation, iterative reconstruction, and/or weight-based dosing when appropriate to reduce radiation dose to as low as reasonably achievable. Dictated by Dylan Jeronimo MD @ Mar 22 2019 10:57AM Signed by Dr. Dylan Jeronimo @ Mar 22 2019 11:03AM
--- NOTE | 2019-03-22 11:07 | CR ---
INDICATION: Pain post fall. TECHNIQUE: AP image of the pelvis. COMPARISON: None. FINDINGS: No fracture or subluxation/diastases. Hip joints normal. Excreted contrast material in the bladder. IMPRESSION: Negative pelvis. Dictated by Dylan Jeronimo MD @ Mar 22 2019 11:04AM Signed by Dr. Dylan Jeronimo @ Mar 22 2019 11:06AM
--- NOTE | 2019-03-22 11:42 | CT ---
INDICATION: Injury for age TECHNIQUE: Volumetric helical scanning of the thorax, abdomen and pelvis was performed with 75 cc of Isovue 370 contrast material IV. Coronal and sagittal reconstructions were obtained. COMPARISON: Today`s thoracic spine CT. FINDINGS: No pneumothorax, hemothorax or pulmonary contusion is evident. Acute, very mild compression fractures of T5 and T8 are noted. No rib or shoulder girdle fracture is demonstrated. No mediastinal hematoma is apparent. The lungs are clear. No airway abnormality is demonstrated. The heart is normal in size. Images of the upper abdomen demonstrate fatty change in the liver and a mildly enlarged spleen. No free intraperitoneal blood is evident in the upper abdomen. Retroperitoneal postop changes are noted. IMPRESSION: 1. Acute, very mild T5 and T8 compression fractures. No other acute traumatic abnormality evident. 2. Fatty liver. 3. Mild splenomegaly. 4. Retroperitoneal postop changes. Please note that all CT scans at this facility use dose modulation, iterative reconstruction, and/or weight-based dosing when appropriate to reduce radiation dose to as low as reasonably achievable. Dictated by Dylan Jeronimo MD @ Mar 22 2019 11:27AM Signed by Dr. Dylan Jeronimo @ Mar 22 2019 11:39AM
--- NOTE | 2019-03-22 11:43 | CT ---
INDICATION: Back injury. TECHNIQUE: Axial, coronal and sagittal reconstructions of the thoracic spine were obtained from today`s chest CT data set. COMPARISON: Today`s chest CT. FINDINGS: Acute, very mild compression fractures of T5 and T8 are demonstrated. Associated mild paraspinous hemorrhage is demonstrated. No other fracture is evident. No bony canal or foraminal stenosis is evident. Mild degenerative changes are noted generally. Schmorl`s nodes are demonstrated at multiple levels. No curvature abnormality is evident. IMPRESSION: 1. Acute, very mild T5 and T8 compression fractures. 2. Mild degenerative changes generally and Schmorl`s nodes at multiple levels. Please note that all CT scans at this facility use dose modulation, iterative reconstruction, and/or weight-based dosing when appropriate to reduce radiation dose to as low as reasonably achievable. Dictated by Dylan Jeronimo MD @ Mar 22 2019 11:40AM Signed by Dr. Dylan Jeronimo @ Mar 22 2019 11:43AM
[2019-03-22 11:52] LABS: CHLORIDE,CL 103 mmol/L (98-107); SODIUM,NA 138 mmol/L (136-148)
[2019-03-22] MEDS ORDERED: HYDROmorphone 1 MG/ML Syringe IVPUSH ONE (11:57)
[2019-03-22] MEDS ORDERED: Diphtheria,Pertussis(Acell),Tetanus Vaccine 0.5 ML Syringe IM ONE (12:19)
[2019-03-22] MEDS ORDERED: Ondansetron 4 MG/2 ML SDV IVPUSH ONE (12:46)
[2019-03-22] MEDS ORDERED: Iopamidol 755 MG/ML 500 ML Multipack Bottle IVPUSH STA (17:08)
== END 2019-03-22 14:05 | disposition home or self-care (01) ==
LOC: MW.ED 10:10
DX: S22.059A Unspecified fracture of T5-T6 vertebra, initial encounter for closed fracture (principal); S22.069A Unspecified fracture of T7-T8 vertebra, initial encounter for closed fracture; S01.01XA Laceration without foreign body of scalp, initial encounter; I10 Essential (primary) hypertension; K21.9 Gastro-esophageal reflux disease without esophagitis; E66.9 Obesity, unspecified; Z68.36 Body mass index [BMI] 36.0-36.9, adult; Z79.899 Other long term (current) drug therapy; Z90.49 Acquired absence of other specified parts of digestive tract; W20.8XXA Other cause of strike by thrown, projected or falling object, initial encounter
CPT/HCPCS: 12002; 36415; 70450; 71260; 72125; 72170; 80053; 80305; 81003; 85025; 85610; 90471; 90715; 96374; 96375; 99284; J1170; J2270; J2405; Q9967; 72128-26; 99285

== ENCOUNTER 2021-12-11 12:43 | Day surgery (SDC) | payer OTHER ==
[~2021-12-11 12:43] MED LIST changes: -Betamethasone Acetate/Betamethasone Sod Phosphate 30 MG/5 ML MDV ONE; -Iopamidol 408 MG/ML 50 ML SDV ONE; +Lactated Ringers 1,000 ML IV SCH; -Lidocaine 2% 5 ML SDV ONE; +Propofol 200 MG/20 ML SDV ONE; -Ropivacaine 0.5% 5 MG/ML 30 ML SDV ONE; +Sodium Chloride 0.9% 10 ML Syringe FLUSH PRN; +Sodium Chloride 0.9% 2.5 ML Syringe FLUSH PRN; +Sodium Chloride 0.9% 20 ML SDV IV PRN
[2021-12-11] MEDS ORDERED: fentaNYL 100 MCG/2 ML SDV ONE (14:01)
[2021-12-11 14:34] VITALS: BP 135/82; PULSE 76
== END 2021-12-11 14:38 | disposition home or self-care (01) ==
LOC: MW.SDS 12:43
PROVIDERS: ATTEND Surgery
DX: R12 Heartburn (principal); K21.9 Gastro-esophageal reflux disease without esophagitis; F41.9 Anxiety disorder, unspecified; F32.A Depression, unspecified; G62.9 Polyneuropathy, unspecified; G47.30 Sleep apnea, unspecified; E66.9 Obesity, unspecified; Z68.36 Body mass index [BMI] 36.0-36.9, adult; Z98.890 Other specified postprocedural states; Z90.49 Acquired absence of other specified parts of digestive tract; Z79.899 Other long term (current) drug therapy; Z86.010 Personal history of colon polyps
CPT/HCPCS: 43239; 45378; J2704; J3010; J7120; 00813